=== PATIENT | female | born 1955 | race Caucasian/White ===

== ENCOUNTER → 2022-03-04 10:38 | Outpatient (CLI) | payer MEDICARE, BC, SELFPAY ==
--- NOTE | 2022-03-04 | DI.NM.S_ITS ---
PROCEDURE: NM BONE SCAN WHOLE BODY RADIOPHARMACEUTICAL: 18.1 mCi Tc-99m MDP IV. INDICATIONS: Multiple myeloma not having achieved remission TECHNIQUE: Delayed whole-body scintigrams were obtained approximately 3-4 hours after intravenous injection of radiotracer. Anterior and posterior views were acquired from vertex to feet. Additional left and right oblique views of the pelvis were obtained. COMPARISON: [facility] [place], CR, XR PELVIS WITH LATERAL HIP LEFT, 02/19/2022, 10:25. [facility] [place], CR, XR KNEE 4+ VIEWS LEFT, 02/19/2022, 10:31. FINDINGS: No lesions are identified in skull, sternum, clavicles, scapulae, ribs, bony pelvis, and visualized shafts of the long bones. There are foci of low level increased uptake in cervical, thoracic and lumbar spine with distribution indistinguishable from degenerative disc and facet disease; early metastasis to spine could be obscured by degenerative changes. There are foci of increased periarticular activity, most pronounced in left hip and medial aspect of the right knee, correlating with severe degenerative joint disease seen on the comparison radiographs. IMPRESSION: 1. No suspicious osseous lesions. 2. Severe left hip and right knee degenerative joint disease. Dictated by: Ayan Sullivan M.D. on 03/04/2022 at 17:42 Approved by: Ayan Sullivan M.D. on 03/05/2022 at 8:28
== END ==
PROVIDERS: Referring Provider Orthopaedic Surgery; Visit Provider Orthopaedic Surgery
DX: C90.00 Multiple myeloma not having achieved remission (principal); M16.12 Unilateral primary osteoarthritis, left hip; M17.11 Unilateral primary osteoarthritis, right knee
CPT/HCPCS: 78306; A9503

== ENCOUNTER → 2022-04-07 13:03 | Outpatient (CLI) | payer MEDICARE, BC, SELFPAY ==
[2022-04-07 15:12] LABS: Free T3, Triiodothyronine Free 3.68 pg/mL (2.77-5.27); Free T4, Direct Thyroxine 2.17 ng/dL (0.78-2.19)
[2022-04-07 15:26] LABS: Thyroid Stimulating Hormone 0.103 uIU/mL (0.47-4.68)
== END ==
PROVIDERS: PCP Nurse Practitioner; Referring Provider Nurse Practitioner; Visit Provider Nurse Practitioner
DX: E03.9 Hypothyroidism, unspecified (principal)
CPT/HCPCS: 36415; 84439; 84443; 84481

== ENCOUNTER → 2022-05-06 10:30 | Outpatient (CLI) | payer MEDICARE, BC, SELFPAY ==
[2022-05-06 12:10] LABS: COVID19 -Nasal RAPID Negative (Negative)
== END ==
PROVIDERS: PCP Nurse Practitioner; Referring Provider Orthopaedic Surgery; Visit Provider Orthopaedic Surgery
DX: Z20.822 Contact with and (suspected) exposure to COVID-19 (principal)
CPT/HCPCS: 87635; C9803

== ENCOUNTER 2022-05-08 06:13 | Day surgery (SDC) | payer MEDICARE, BC, SELFPAY ==
[2022-04-28 09:47] VITALS: BMI 39.3
[2022-05-08] VITALS (12 sets, daily range): BP systolic 112–176; BP diastolic 72–107; PULSE 66–89; RESP 16–18; TEMP 36.2–36.9; O2SAT 94–100; BMI 39.3
--- NOTE | 2022-05-08 06:39 | DI.RAD.S_ITS ---
PROCEDURE: XR PELVIS 1-2V INDICATIONS: LEFT HIP INNER OP TECHNIQUE: 1 view of the lower pelvis acquired. COMPARISON: None. FINDINGS: Intraoperative film of the left hip shows total hip arthroplasty in progress. Procedural soft tissue air within normal limits. Components appear appropriately aligned. No fracture. IMPRESSION: 1. Total left hip arthroplasty in progress Approved by: Fred Ortez M.D. on 05/08/2022 at 12:23
--- NOTE | 2022-05-08 06:56 | PM.PREOP ---
Pre-operative Note COVID-19 COVID-19 status: Negative Interval Note History & Physical reviewed/Exam performed by Physician: Yes Changes to H&P: No
[2022-05-08] MEDS: VANCOMYCIN 1,000 MG/200 ML PIGGYBACK 200 MG IV (06:57)
--- NOTE | 2022-05-08 06:57 | PM.OP.1 ---
Operative Date/Time/Diagnoses Date of procedure: 05/08/22 Time of procedure: 07:50 Pre-op diagnosis: Left hip avascular necrosis, left hip osteoarthritis Post-op diagnosis: same Procedure & Clinicians Procedure: Left total hip arthroplasty posterior approach Same procedure as scheduled: Yes Indications: The patient has had progressively worsening left hip pain with radiographic changes consistent with arthritis. Non-operative management has failed and the patient has requested total hip replacement. The risks, benefits and alternatives to surgery were discussed with the patient prior to proceeding. Risks discussed included, but were not limited to, failure to relieve pain, leg length discrepancy, dislocation, stiffness, infection, nerve damage, deep venous thrombosis, pulmonary embolism, stroke, coma, heart attack, permanent paralysis and , as well as the potential need for eventual revision of the prosthetic. Surgeon: Altagracia Godinez Casing In Line Feeder: Ros Gaston Anesthesia Type: General and Spinal Operative Notes Findings: Severe left hip avascular necrosis with marked softening of the acetabulum, soft bone, adequate stability Closure Type: primary Specimen(s): none sent Prosthetic devices, grafts, tissues, transplants, or devices: Size 54 readapt acetabulum, size 6 standard offset anthology, 36 x -3 cobalt chrome femoral head, three 6.5 mm screws, neutral poly liner Applied: drain(s) Estimated Blood Loss (mL): 250 Blood products transfused: none Procedure in detail: The patient was seen in the pre-operative area, where the patient identified the left hip as the operative site and this was marked with my initials. The patient received pre-operative antibiotics and was taken to the operating room and placed on the operative table in the right lateral decubitus position after satisfactory anesthesia. A budget consultant out was performed. The left leg was prepared from the ankle to the iliac crest with ChloroPrep in the usual fashion and draped through sterile drapes. The hip was approached through an approximately 20 cm incision centered over the greater trochanter and curving gently posteriorly as it went proximally. This was carried sharply to the fascia thom, which was divided and retracted with a self retaining retractor. The trochanteric bursa was excised with care being taken to avoid the sciatic nerve, which was identified and protected throughout the case. The short external rotators were incised and the capsulomuscular flap was raised and tagged for later repair. The hip was dislocated, and a femoral neck osteotomy performed approximately 15 mm above the lesser trochanter. Retractors were placed around the femur. The canal was opened with a box cutting osteotome, followed by a T handled reamer and a lateralizing reamer. The chili pepper broach was then used, followed by sequential broaching until there was good stability of the broach in the femur. Retractors were placed to expose the acetabulum. The labrum and central soft tissues were removed. Reaming was performed initially going up in 2 mm increments, then 1 mm increments until good bite was obtained with an odd sized reamer. The cup 1 mm larger than the last reamer was then inserted using the appropriate anteversion guides. It was further stabilized with 3 screws as she had very soft bone. A trial neutral liner was placed. The broach was placed in the canal. A trial head and neck were then placed and the hip relocated and checked for leg length and stability. An intraoperative film confirmed the component position and no evidence of fracture. The patient was stable in the position of sleep, of squatting, and could be put through a range of motion with 45 degrees internal rotation without dislocation. At 90 degrees flexion, internal rotation to 70 was possible before dislocation. This was felt to be satisfactory and the appropriate components were opened, and the trials were removed. The acetabular liner was impacted into position. The final stem was then impacted into the prepared femoral canal. A brief Betadine soak was performed while trialing with head options. The hip was meticulously irrigated with normal saline. Finally the femoral head was impacted onto the stem. The acetabulum was cleared of all material and the hip relocated one final time. The capsulomuscular flap was then repaired to the greater trochanter though an awl hole using the tag sutures. The short external rotators were repaired with a nonabsorbable suture. A deep drain was placed and brought out anteriorly. The fascia thom was closed with Vicryl. The subcutaneous layer was closed with barbed sutures and skin lo. An Collin dressing was applied and the patient was taken to recovery having tolerated the procedure well. Complications: none Post-operative Condition: stable Disposition: Acute Care Plan for aftercare: The patient will be maintained on a standard total hip replacement protocol with weight bearing as tolerated and posterior hip precautions. The patient will receive Aspirin and sequential compression devices for DVT prophylaxis. The patient will be discharged home when safe for the home environment.
[2022-05-08] MEDS: ACETAMINOPHEN 325 MG TABLET 975 MG PO (07:03)
[2022-05-08] MEDS: LACTATED RINGERS 1,000 ML 42 ML IV ×2 (07:29→10:09)
[2022-05-08] MEDS: APREPITANT 40 MG CAPSULE PO (07:52)
[2022-05-08] MEDS: CEFAZOLIN 2 GM/20 ML SYRINGE IV ×3 (08:23→19:31)
[2022-05-08] MEDS: TRANEXAMIC ACID 1,000 MG VIAL 2000 MG INJ ×2 (08:36→10:15)
--- NOTE | 2022-05-08 08:56 | SUR.OPER ---
Lateral on padded OR bed. Gel axillary roll. Arms secured on padded armboard with pillow supporting top arm, secured with tape over washcloth. Padded hip positioner braces x4 - anterior and posterior chest and pelvis. Additional gel pad used anterior pelvis. Gel pad under bottom leg from knee to foot and secured with tape over sheet.
[2022-05-08] MEDS: BUPIVACAINE LIPOSOME 266 MG/20 ML VIAL INJ (10:00)
[2022-05-08] MEDS: BUPIVACAINE 0.25% (PF) 60 ML, EPINEPHrine 0.3 MG INJ (10:00)
[2022-05-08] MEDS: EPINEPHrine 1 MG/ML TOP (10:05)
[2022-05-08] MEDS: SODIUM CHLORIDE IRRIG SOLUTION 250 ML, POVIDONE-IODINE SPONGE STICKS 1 APPLIC IRR (10:14)
--- NOTE | 2022-05-08 11:00 | DI.RAD.S_ITS ---
PROCEDURE: XR HIP W PEL IF DONE LT 2V INDICATIONS: POST OP LEFT HIP (POSTERIOR) TECHNIQUE: 2 views of the hip were acquired. COMPARISON: None. FINDINGS: Bones: Total left hip prosthesis in good position. Overlying skin lo and articular drain noted. Pelvic ring intact. Soft tissues: No suspicious soft tissue calcifications or masses. Postprocedural air within expected limits IMPRESSION: Total left hip prosthesis in good position. Postprocedural air and skin lo noted. Approved by: Fred Ortez M.D. on 05/08/2022 at 17:18
[2022-05-08] MEDS: ONDANSETRON 4 MG/2 ML INJ IV (11:17)
[2022-05-08] MEDS: ACETAMINOPHEN 325 MG TABLET 650 MG PO ×3 (12:13→23:31)
[2022-05-08] MEDS: LACTATED RINGERS 1,000 ML 125 ML IV (12:13)
--- NOTE | 2022-05-08 16:25 | PT.IIE ---
Current Diagnoses Unilateral primary osteoarthritis, left hip (05/08/22) Pain in left knee (05/08/22) Surgery Performed Operation Date: 05/08/22 07:45 Actual Procedures p Total Hip Arthroplasty Posterior(Left) - Altagracia Godinez MD Surgical History (Last Updated 04/28/22 @ 10:15 by Magda Leal, RN) History of partial hysterectomy (2013) History of surgery (12/2019) Hx of bilateral cataract extraction Hx of LASIK (~1998) Hx of ovarian cystectomy (1990) Hx of right mastectomy (03/2019) Hx of tonsillectomy Medical History (Last Updated 04/28/22 @ 10:15 by Magda Leal RN) Anesthesia complication Breast cancer, right (~2018) Cancer of blood vessel (~2009) Fibroids (~2013) Finger fracture (~2011) Hearing impaired HTN (hypertension) Hypothyroidism (~2004) Measles (~1959) Multiple myeloma Osteoarthritis (~2017) Peripheral neuropathy (~2018) RLS (restless legs syndrome) Rosacea (~2004) Seizure Physical Therapy Inpatient Evaluation/Re-Eval M1 PT/OT-IP Prior Functional Status Start: 05/08/22 17:39 Freq: NEEDED Status: Active Protocol: Document 05/08/22 04:25 AB (Rec: 05/08/22 17:49 AB [id number]) Medical Review Prior Functional Status Medical History Reviewed Yes Communication able to make needs known Mobility and Gait pt stated that she is modified independent with all mobilities and ambulation using SPC Social History Household Members none Living Arrangements House Number of Floors (Floors) One Floor Number of Stairs To Enter/Railing? 5 steps L rail: daughter stated that FWW will fit on the steps Home Environment High Toilet,Walk in Shower Home Equipment Front Wheel Walker,Straight Cane Additional Social History Comment daughter will be staying with pt to assist as long as needed M2 PT-IP Current Condition Start: 05/08/22 17:39 Freq: NEEDED Status: Active Protocol: Document 05/08/22 04:25 AB (Rec: 05/08/22 17:49 AB [email or web address]) Physical Therapy Current Condition Current Condition Evaluation Date 05/08/22 Treatment Diagnosis s/p L SHANITA posterior approach; difficulty in walking Onset Date 05/08/22 M3 PT-IP Subjective Start: 06/16/22 17:39 Freq: NEEDED Status: Active Protocol: Document 05/08/22 04:25 AB (Rec: 05/08/22 17:49 AB [id number]) Subjective Physical Therapy Visit Type Type Initial Evaluation Visit Start Time 16:25 Visit Stop Time 17:21 Total Visit Minutes 56 Number of RADIO OPERATOR GROUND Visits 0 Physical Therapy Visit Comments Patient Comments agreeable to do PT Therapy Pain Assessment Pain When Pain Assessed At Rest Pain Present Pain Present Pain Reported Location Left Hip Intensity 2 Scale Used Numeric (0 - 10) Pain Management Techniques Distraction,Re-positioning, Timing of Activity with Medications M4 PT-IP Mobility and Gait Start: 05/08/22 17:39 Freq: NEEDED Status: Active Protocol: Document 05/08/22 04:25 AB (Rec: 05/08/22 17:49 AB [id number]) PT-Bed Mobility Assessment Sit to Supine Sit to Supine Minimal Assistance PT-Transfer Assessment Sit to and From Stand Sit to and from Stand Minimal Assistance,1 Person Assistance,Use of Upper Extremities Equipment Transfer Assistive Device Gait Belt,Front Wheeled Walker Orthotic/Prosthetic Devices or Brace: No Transfers Transfer Destination Bed,Chair Transfer Technique ambulated Transfer Ability Level of Assist Contact Guard Assistance,1 Person Assistance,Use of Upper Extremities Comments Mobility Comments pt walking with nurse to use the toilet. PT took over. pt able to completed sit to stand from the toilet using grab bar min A and cues. ambulated to the chair using FWW ~ 10 ft CGA. educated pt and daughter regarding posterior hip precautions. pt completed sit to stand from the chair CGA to min A and cues and ambulated ~ 20ft using fWW to the EOB CGA. completed sit to supine min A with LE elevation to bed. positioned pt in bed. set up for dinner. call light and table placed within reach. caregiver training set up tomorrow with daughter at 830am. Gait Assessment Gait Gait Assistance Required: Contact Guard Assist Distance (Feet) 20 Able to Maintain Weight Bearing Status Yes During Gait Assistive Devices Assistive Device Gait Belt,Front Wheeled Walker Orthotic/Prosthetic Devices or Brace: No Gait Deviations General Gait Pattern Antalgic,Decreased Stride Length,Decreased Feet Clearance Factors Limiting Gait Function Factors Limiting Gait Function Decreased Activity Tolerance, Decreased Strength,Pain,Poor Balance PT-Balance Assessment Sitting Balance and Reactions Static Sitting Balance Ability Normal Dynamic Sitting Balance Ability Normal Standing Balance and Reactions Static Standing Balance Ability Fair Dynamic Standing Balance Ability Fair Device Used FWW M5 PT-IP Objective Assessments Start: 05/08/22 17:39 Freq: NEEDED Status: Active Protocol: Document 05/08/22 04:25 AB (Rec: 05/08/22 17:49 AB [id number]) Orientation Orientation/Cognition Level of Alertness Alert Orientation Name,Place,Situation Language Function Ability No Deficits Noted Safety Awareness Understands Safety Issues Memory Description No Deficits Noted Gross Range of Motion Lower Extremity ROM Assessment Within Functional Limits Strength Lower Extremity Strength Assessment Left Impaired Hip 3+/5 Knee 4-/5 Coordination Assessment Gross Coordination Gross Coordination WNL Sensation Assessment Sensation Gross Sensation WNL Muscle Tone Muscle Tone WNL Yes M6 PT-IP Treatment Start: 05/08/22 17:39 Freq: NEEDED Status: Active Protocol: Document 05/08/22 04:25 AB (Rec: 05/08/22 17:49 AB [id number]) Physical Therapy Treatment Education Education Provided Precautions,Weight Bearing Status,Post-Op Packet,Safety M7 PT-IP Assessment and Plan Start: 05/08/22 17:39 Freq: NEEDED Status: Active Protocol: Document 05/08/22 04:25 AB (Rec: 05/08/22 17:49 AB [email or web address]) PT Summary Assessment and Plan Potential Rehabilitation Potential Good Status of Condition at Evaluation Stable Summary Impairments Pain,ROM,Strength,Balance, Coordination,Sensation,Tone, Cognition,Bed Mobility, Transfers,Gait,Activity Tolerance Assessment Summary pt requiring CGA to min A with mobility using FWW. caregiver training set up tomorrow at 830am. will continue to assess progress. Goals Bed Mobility Goal Independent Transfer Goal Independent,Front Wheeled Walker Gait Goal Independent,Front Wheel Walker Gait Distance 200 Other Goals up/down 5 steps using FWW Days to Meet Goals 3 Frequency of Treatment Frequency Of Treatment Twice a Day Treatment Plan Physical Therapy Treatment Plan Bed Mobility Training,Transfer Training,Gait Training, Therapeutic Exercise,Balance Retraining,Post Op Education, Discharge Planning,Hot or Cold Pack,Neuromuscular Re-ed, Coordination Retraining,Manual Therapy Precautions Posterior Hip Precautions No Hip Flexion > 90 degrees,No Hip Internal Rotation,No Hip Adduction Weight Bearing Status Weight Bearing Status Weight Bear as Tolerated Allowed Weight Bearing Amount (enter % LLE WBAT or #) (%) Recommendations To Nursing Amount of Assist Needed 1 Person Assist Discharge Recommendations PT Discharge Recommendations Home with Assistance, Outpatient PT Transportation Needs at Discharge Private Vehicle
[2022-05-08] MEDS: DOCUSATE 100 MG CAPSULE PO (20:29)
[2022-05-08] MEDS: ASPIRIN EC 81 MG TABLET PO (20:29)
[2022-05-08] MEDS: CHOLECALCIFEROL (VITAMIN D3) 5,000 UNIT TABLET 5000 UNIT PO (20:29)
[2022-05-09 04:30] VITALS: BP 140/85; PULSE 90; RESP 14; TEMP 37.4; O2SAT 98
[2022-05-09] MEDS: LEVOTHYROXINE 50 MCG TABLET PO (06:20)
[2022-05-09] MEDS: ACETAMINOPHEN 325 MG TABLET 650 MG PO ×2 (06:20→11:32)
[2022-05-09 07:15] LABS: Hematocrit 32.5 % (36-46); Hemoglobin 11.7 g/dL (12.0-16.0)
[2022-05-09 07:42] VITALS: BP 132/78; PULSE 94; RESP 18; TEMP 37.2; O2SAT 97
[2022-05-09] MEDS: DOCUSATE 100 MG CAPSULE PO (08:10)
[2022-05-09] MEDS: ASPIRIN EC 81 MG TABLET PO (08:11)
[2022-05-09] MEDS: CHOLECALCIFEROL (VITAMIN D3) 5,000 UNIT TABLET 5000 UNIT PO (08:11)
[2022-05-09] MEDS: MULTIVITAMIN 1 TABLET 1 TAB PO (08:11)
[2022-05-09] MEDS: SODIUM CHLORIDE 0.9% FLUSH 10 ML IV (08:18)
--- NOTE | 2022-05-09 08:25 | PT.IPTN ---
Current Diagnoses Unilateral primary osteoarthritis, left hip (05/08/22) Pain in left knee (05/08/22) Surgery Performed Operation Date: 05/08/22 07:45 Actual Procedures p Total Hip Arthroplasty Posterior(Left) - Altagracia Godinez MD Physical Therapy Treatment Note M2 PT-IP Current Condition Start: 05/08/22 17:39 Freq: NEEDED Status: Active Protocol: Document 05/08/22 04:25 AB (Rec: 05/08/22 17:49 AB [email or web address]) Physical Therapy Current Condition Current Condition Evaluation Date 05/08/22 Treatment Diagnosis s/p L SHANITA posterior approach; difficulty in walking Onset Date 05/08/22 M3 PT-IP Subjective Start: 05/08/22 17:39 Freq: NEEDED Status: Active Protocol: Document 05/09/22 08:25 AB (Rec: 05/09/22 12:13 AB [email or web address]) Subjective Physical Therapy Visit Type Type Treatment Note Visit Start Time 08:25 Visit Stop Time 09:00 Total Visit Minutes 35 Number of INFORMATION SYSTEMS ARCHITECT Visits 0 Physical Therapy Visit Comments Patient Comments agreeable to do PT Therapy Pain Assessment Pain When Pain Assessed At Rest Pain Present Pain Present Pain Reported Location Left Hip Intensity 2 Scale Used Numeric (0 - 10) Description Tightness Pain Management Techniques Modification of Treatment,Re- positioning,Timing of Activity with Medications M4 PT-IP Mobility and Gait Start: 05/08/22 17:39 Freq: NEEDED Status: Active Protocol: Document 05/09/22 08:25 AB (Rec: 05/09/22 12:13 AB [email or web address]) PT-Bed Mobility Assessment Sit to Supine Sit to Supine Moderate Assistance PT-Transfer Assessment Sit to and From Stand Sit to and from Stand Contact Guard Assistance,1 Person Assistance,Use of Upper Extremities Equipment Transfer Assistive Device Gait Belt,Front Wheeled Walker Orthotic/Prosthetic Devices or Brace: No Transfers Transfer Destination Bed Transfer Technique ambulated Transfer Ability Level of Assist Contact Guard Assistance,1 Person Assistance,Use of Upper Extremities Comments Mobility Comments pt sitting on chair and daughter in room. BP: 132/78. pt able to recall 2/3 hip precautions but daughter was able to cue pt on precautions. caregiver training conduced. educated daughter on how to use safety belt and how to assist pt. daughter was able to put safety belt on pt and assisted pt with sit to stand and ambulated to the bed ~ 12ft using FWW CGA. pt c/o dizziness, nausea and cold sweats and instructed to sit down on the EOB. BP checked: 112/60. pt rested in sitting position for a few more minutes. BP: 110/74. pt stated that she is feeling better. BP monitored. completed sit to stand CGA and BP in standin/67. pt remained standing but after ~ 1-2 minutes and tosit back down due to dizziness and cold sweats and checked BP again 117/64. pt stated that she wants to lay back in bed. completed sit to supine mod A with LE elevation. positioned in bed. BP checked: 141/75. informed nurse regarding BP. adeline light and table placed within reach. set up 1 pm PT session this afternoon. Gait Assessment Gait Gait Assistance Required: Contact Guard Assist,1 Person Assist Distance (Feet) 12 Able to Maintain Weight Bearing Status No During Gait Assistive Devices Assistive Device Gait Belt,Front Wheeled Walker Orthotic/Prosthetic Devices or Brace: No Gait Deviations General Gait Pattern Antalgic,Decreased Stride Length,Decreased Feet Clearance Factors Limiting Gait Function Factors Limiting Gait Function Decreased Activity Tolerance, Decreased Strength,Limited Range of Motion,Pain,Poor Balance M5 PT-IP Objective Assessments Start: 05/08/22 17:39 Freq: NEEDED Status: Active Protocol: Document 05/08/22 04:25 AB (Rec: 05/08/22 17:49 AB [email or web address]) Orientation Orientation/Cognition Level of Alertness Alert Orientation Name,Place,Situation Language Function Ability No Deficits Noted Safety Awareness Understands Safety Issues Memory Description No Deficits Noted Gross Range of Motion Lower Extremity ROM Assessment Within Functional Limits Strength Lower Extremity Strength Assessment Left Impaired Hip 3+/5 Knee 4-/5 Coordination Assessment Gross Coordination Gross Coordination WNL Sensation Assessment Sensation Gross Sensation WNL Muscle Tone Muscle Tone WNL Yes M6 PT-IP Treatment Start: 05/08/22 17:39 Freq: NEEDED Status: Active Protocol: Document 05/09/22 08:25 AB (Rec: 05/09/22 12:13 AB [email or web address]) Physical Therapy Treatment Education Education Provided Precautions,Safety M7 PT-IP Assessment and Plan Start: 05/08/22 17:39 Freq: NEEDED Status: Active Protocol: Document 05/09/22 08:25 AB (Rec: 05/09/22 12:13 AB [email or web address]) PT Summary Assessment and Plan Potential Rehabilitation Potential Good Summary Impairments Pain,ROM,Strength,Balance, Coordination,Sensation,Tone, Cognition,Bed Mobility, Transfers,Gait,Activity Tolerance Progress Towards Goals Slow Progress due to Activity Tolerance Assessment Summary caregiver training conducted but needs further training. unable to complete training due to pt's decrease in BP with activity and c/o nausea/ dizziness and cold sweats. set up PT session again with ellither at 1 pm today. will assess progress for safe d/c plan Goals Bed Mobility Goal Independent Transfer Goal Independent,Front Wheeled Walker Gait Goal Independent,Front Wheel Walker Gait Distance 200 Other Goals up/down 5 steps using FWW Days to Meet Goals 3 Frequency of Treatment Frequency Of Treatment Twice a Day Treatment Plan Physical Therapy Treatment Plan Bed Mobility Training,Transfer Training,Gait Training, Therapeutic Exercise,Balance Retraining,Post Op Education, Discharge Planning,Hot or Cold Pack,Neuromuscular Re-ed, Coordination Retraining,Manual Therapy Precautions Posterior Hip Precautions No Hip Flexion > 90 degrees,No Hip Internal Rotation,No Hip Adduction Weight Bearing Status Weight Bearing Status Weight Bear as Tolerated Allowed Weight Bearing Amount (enter % LLE WBAT or #) (%) Recommendations To Nursing Amount of Assist Needed 1 Person Assist Discharge Recommendations PT Discharge Recommendations Home with Assistance, Outpatient PT Transportation Needs at Discharge Private Vehicle
[2022-05-09 10:54] VITALS: BP 128/69; PULSE 80; RESP 18; TEMP 37.1; O2SAT 100
--- NOTE | 2022-05-09 11:00 | P.DS_ITS ---
History of Present Illness History of Present Illness Date Patient Seen: 05/09/22 Time Patient Seen: 11:00 Chief complaint: LT SHANITA Narrative: Patient is complaining of very mild left hip pain this morning. She is using Tylenol only for pain currently. She is scheduled to work with physical therapy at 9:00 a.m.. Overall she is feeling good and would like to be discharged home. Her daughter is at bedside currently. Discharge Providers Provider Discharge Date: 05/09/22 Primary care physician: CHRISTOPHER Lovelace Consults: 05/08/22 06:39 Consult to Anesthesiology Routine Comment: Consulting Provider: Anesthesiologist Reason for consultation: Regional block for post operative pain control 05/08/22 11:52 Consult to Discharge Planning Routine Comment: Consult to Physical Therapy Evaluate & Treat Comment: Physician Instructions: post op SHANITA protocol Consult to Respiratory Therapy Evaluate & Treat Comment: Physician Instructions: Evaluate and treat Discharge provider: Ros Gaston PA-C Summary Hospital Course Discharge Diagnosis: Left hip avascular necrosis, left hip osteoarthritis Hospital Course: Operative Date/Time/Diagnoses Date of procedure: 05/08/22 Time of procedure: 07:50 Procedure & Clinicians Procedure: Left total hip arthroplasty posterior approach Same procedure as scheduled: Yes Indications: The patient has had progressively worsening left hip pain with radiographic changes consistent with arthritis. Non-operative management has failed and the patient has requested total hip replacement. The risks, benefits and alternatives to surgery were discussed with the patient prior to proceeding. Risks discussed included, but were not limited to, failure to relieve pain, leg length discrepancy, dislocation, stiffness, infection, nerve damage, deep venous thrombosis, pulmonary embolism, stroke, coma, heart attack, permanent paralysis and , as well as the potential need for eventual revision of the prosthetic. Surgeon: Altagracia Godinez Insurance Representative: Ros Gaston Anesthesia Type: General and Spinal Operative Notes Findings: Severe left hip avascular necrosis with marked softening of the acetabulum, soft bone, adequate stability Closure Type: primary Specimen(s): none sent Prosthetic devices, grafts, tissues, transplants, or devices: Size 54 readapt acetabulum, size 6 standard offset anthology, 36 x -3 cobalt chrome femoral head, three 6.5 mm screws, neutral poly liner Applied: drain(s) Estimated Blood Loss (mL): 250 Blood products transfused: none Procedure in detail: Status at Discharge Cognitive/behavioral status at discharge: at baseline, oriented Functional status at discharge: uses cane/walker Overall status at discharge: patient is progressing back to baseline Exam Vital Signs (past 8 hours): - 05/09/22 04:30 05/09/22 07:42 05/09/22 10:54 Temperature 99.3 F 99.0 F 98.8 F Pulse Rate 90 94 H 80 Respiratory Rate 14 18 18 Blood Pressure 140/85 132/78 128/69 Pulse Oximetry 98 97 100 Oxygen Flow Rate 0 0 0 Oxygen Delivery Method Room Air Oxygen Flow Rate 0 Narrative Exam Narrative: Very pleasant 67-year-old female resting comfortably in her chair, no acute distress. Dressing is collin dressing and demonstrates scant serosanguineous drainage, no surrounding erythema or induration. Bilateral lower ext we: Motor functions are grossly intact, sensation is grossly intact to light touch, calves are soft and nontender to palpation. Objective Labs Result Diagrams: 05/09/22 06:31 Labs: Laboratory Results - last 24 hr 05/09/22 06:31 Hgb 11.7 L Hct 32.5 L PFSH Medical History Anesthesia complication Breast cancer, right (~2018) Cancer of blood vessel (~2009) Fibroids (~2013) Finger fracture (~2011) Hearing impaired HTN (hypertension) Hypothyroidism (~2004) Measles (~1959) Multiple myeloma Osteoarthritis (~2017) Peripheral neuropathy (~2018) RLS (restless legs syndrome) Rosacea (~2004) Seizure Surgical History History of partial hysterectomy (2013) History of surgery (12/2019) Hx of bilateral cataract extraction Hx of LASIK (~1998) Hx of ovarian cystectomy (1990) Hx of right mastectomy (03/2019) Hx of tonsillectomy Social History household members: none Smoking Status: Never smoker alcohol intake: current Discharge Assessment & Plan Assessment and Plan Assessment: Stable status post left total hip arthroplasty, posterior approach Plan of Treatment: -mobilize with PT. Weightbearing as tolerated with front wheel walker. Maintain posterior hip precautions x6 weeks -continue with multimodal pain management -aspirin 81 mg twice daily x6 weeks for DVT prophylaxis -patient already has all of her frny-cxs-zmxbogn and prescription medications at home -pull Hemovac drain today -DC home when cleared by PT Discharge Plan Discharge Plan Patient Disposition: Home Discharge orders & Medications Discharge Orders: Discharge (Order); Ordered 05/09/22 Ordered By: Ros Gaston Prescriptions: New oxycodone 5 mg Tablet 5 mg PO Q4HR PRN (Reason: Moderate to severe postop pain) Qty: 42 0RF acetaminophen 500 mg capsule 500 mg PO Q4-6H MDD Max 3000 mg per day Qty: 90 0RF aspirin 81 mg Tablet,Delayed Release (Dr/Ec) 81 mg PO BID 42 Days Qty: 84 0RF Rx Instructions: Take 162 mg (1/2 tab of Aspirin 325mg) daily x6 weeks to prevent blood clots ibuprofen 200 mg Tablet 400 mg PO Q4-6H MDD Max 2400 mg per day PRN (Reason: Pain/inflammation) Qty: 90 0RF docusate sodium 100 mg Capsule 100 mg PO BID PRN (Reason: Constipation from narcotic pain meds) Qty: 20 0RF Continued levothyroxine 50 mcg capsule 50 mcg PO DAILY Qty: 90 1RF Rx Instructions: Due for repeat TSH in 3 months sulindac 200 mg tablet 200 mg PO .QD wdgdddfikroi-Xe-qujv-minerals Tablet 1 tab PO .QD cholecalciferol (vitamin D3) 125 mcg (5,000 unit) capsule 5,000 unit PO BID ibuprofen 200 mg Tablet 400 mg PO Q6H PRN (Reason: Pain) Discontinued acetaminophen 500 mg Tablet 1,000 mg PO Q6H PRN (Reason: Pain) Follow up/Referrals: Kristin Richard ARNP [Primary Care Provider] - Altagracia Godinez MD [Physician] - (10-14 days for postoperative visit) Diet/Activity/Treatments Diet: Diet as Tolerated Other treatments: Medications: -Aspirin 81mg twice daily x6 weeks to prevent blood clots. -OTC Tylenol 500 mg 1 tablet every 4 hours as needed for pain/fever. Max 6 tablets per day. -Ibuprofen 400 mg 1 tablet every 4 hours as needed for pain/inflammation. Max 2,400 mg per day. -Oxycodone 5 mg take 1-2 tablets every 4 hours as needed for moderate-severe pain (narcotic pain medication). -Vistaril (hydroxyine) 25mg 1 tab every 4 hours as needed for spasms/pain/nausea. -As needed medications: -Ducolax and /or MiraLax as needed for constipation from narcotic pain medications. -Pepcid AC as needed for stomach upset (usually from aspirin or ibuprofen). Dressing/Wound care: -Keep Collin dressing in place until postoperative follow-up office visit. The Collin battery/pump should last for 7 days. Once that stops, please cut off hose at base of dressing and cover with a bandaid/part of a dressing from Collin package. Monitor can be thrown away and recycle the batteries. Leave the remaining dressing in place. -Okay to shower. Keep wound out of direct water stream. No soaking or submerging until all the scabs fall off (approximately 6 weeks). -No lotions, ointments, or scar creams directly to the incision until the wound is healed (4-6 weeks), -Please call the office if dressing becomes wet, soiled, or saturated. Activities: -Maintain posterior hip precautions x6 weeks. -Weight-bearing as tolerated. Use front wheeled walker, and progress to cane when safe. -Continue with home exercises as directed by your physical therapist. -Elevate ?toes above the nose if you have significant swelling in your lower leg. (A wedge pillow is easiest.) -Ice your incision as needed for pain/inflammation/swelling. Protect your skin with a folded pillowcase. Follow-up: -Follow-up with your surgeon or PA in the office in 10-14 days after surgery. -Follow-up with your surgeon 6 weeks postoperatively. Call the office if you have chest pain, shortness of breath, significant swelling that will not resolve with elevating, fever over 101?, significantly worsening pain, or are concerned you might need to go to the Emergency Room. [facility]: [phone] Skin/Wound/Dressing Care Report to your healthcare provider any signs of infection, such as:: chills, fever, night sweats, unusual drainage and unusual redness Visit Report/Discharge Packet Instructions: DI for Hip Replacement Stand Alone Forms: Surgery Discharge Discharge Data Primary Care Provider: Kristin Richard Attending Provider: Altagracia Godinez VTE Deep Vein Thrombosis/Pulmonary Embolism Present on Admission: No
[2022-05-09 11:15] VITALS: BP 151/81
--- NOTE | 2022-05-09 12:12 | CM.DANOTE ---
DCP: Case received, EMR reviewed and met with patient. Daughter, Jennifer, was also at bedside. Introduced self and role. Was able to obtain information regarding patient's baseline activity status prior to her surgery. DCP assessment completed with information currently available. Patient is a 67 year old female who admitted yesterday morning to the care of the orthopedic team. PCP: CHRISTOPHER Lovelace. Payer: confirmed: Medicare/ Out of State [employer]. Patient came to the hospital for a surgical procedure. She had left total hip arthroplasty, posterior approach. Patient has history of left hip osteoarthritis. Met with patient in her room, daughter, Jennifer, also present. Patient is alert and oriented, was sitting up in bed, pleasant.Confirmed with patient that she resides alone in [facility], but her daughter, Jennifer, lives close by, in [place]. Daughter plans on staying with mom for her recovery. Patient drives at her baseline, and uses a single point cane. She will be working again with the P.T. team. P: Patient has discharge orders for home today, pending working with therapy. Leatha Lewis RN/Vacuum Pan Operator Discharge Planning/Care Management CM Discharge Assessment Start: 05/09/22 12:06 Freq: Status: Active Protocol: Document 05/09/22 12:07 (Rec: 05/09/22 12:11 [id number]) Discharge Planning Assessment Assigned Executive Kitchen Manager Leatha Lewis RN/Vacuum Pan Operator Advance Directives? Yes Advance Directives on File No History Provided By Patient,Medical Record Prior Living Arrangements House Household Members none Type of transporation used prior to Drives own vehicle admit Independent with ADL's Yes Is patient alert and oriented? Yes Caregiver for Another No DME Already Rented / Owned Other Comment Single Point Cane Barriers to Discharge No Comment Daughter will be staying with her Discharge Plan Home Transportation Arrangement Daughter Referrals Initiated None needed Whiteboard Updated in Patient Room with Yes name and ext. # of Executive Kitchen Manager Review Status In Process Next Review Type Continued Stay Review Pre-Anesthesia Assessment Start: 04/28/22 09:47 Freq: Status: Complete Protocol: Document 04/28/22 09:47 CAB (Rec: 04/28/22 10:35 CAB [id number]) Pre-Anesthesia Assessment Preferred Name Naty Patient Information Reviewed Via Phone Assessment Assessment Completed With Patient Diagnostic Results BMP/CMP,CBC,EKG,Urinalysis Comment Outside labs/ECG scanned, COVID screen-needs to schedule Primary Care Provider Kristin Richard Medical Clearance Received Yes Seen Specialist in Last 12 Months Yes Specialist Seen Orthopedist Primary Language Iranian Paint Crew Supervisor Required No Height 5 ft 5 in Weight 236 lb 8.014 oz Body Mass Index (BMI) 39.3 Hearing Ability Hard of Hearing Visual Impairment No Limitations Dentition Type Teeth, Natural Present Barriers to Learning None Hx Anesthesia Reactions Yes: Extreme PONV, took me a long time to wake up after mastectomy Hx Family Anesthesia Reaction No Hx Malignant Hyperthermia No Hx Blood Transfusions Yes: During chemo 2019 Hx Blood Transfusion Reaction No Anesthesia Review Requested No alcohol intake current alcohol intake frequency holidays/special occasions only Smoking Status Never smoker Substance Use Type marijuana Comment Edibles only for sleep Pain Present Pain Reported Musculoskeletal Symptoms Abnormal Gait,Difficulty Walking,Joint Pain History of Falling (Recent or History of No ) Patient is completely paralyzed or No completely immobile Prosthesis or Orthotic Device Cane,Front Wheel Walker Mental Status Oriented to own ability Is patient on oxygen? No Does patient have TREVIÑO/SOB No Hx Sleep Apnea No Currently Taking a Beta Alexy No Can You Climb a Flight of Stairs Without No SOB Hx Chest Pain No Hx SOB No Hx Syncope or Dizziness No Anti-Coagulant Therapy No Has a Onboarding Specialist No Cardiac Testing No Hx Pacemaker/ICD No Pacemaker Rep Required? No Cardiac Clearance Received Not Applicable Diet Type At Home Regular dysphagia No Bladder Pattern Incontinent Urinary Catheter Present No Hx Urinary Self Catheterization No Diabetes No HgbA1C 5.3 Date 02/25/22 Patient No Lactating No Hx Drug Resistant Organism No Presence of External or Internal Medical Yes: Bilat eye IOLs Devices Have you had any close contact with No someone diagnosed with COVID-19? Received a COVID vaccine? Yes Received all doses? Yes Marital Status / 2018 Lives With none Prior Living Arrangements House Number of Floors (Floors) One Floor Support System Child/Children Does the Patient Have Assistance After Yes: Daughter will stay with Surgery pt at [place] Patient Discharge Plan Description Return Home Comment Pt advised 1 night length of stay per surgeon's office Feels Safe in Current Environment Yes Been Physically Hurt or Threatened By a No Person in Current Environment Do you have thoughts of harming yourself None or others? Are you currently considering suicide? No Do you have a plan to hurt yourself or No Plan others? Do You Have Any Spiritual Beliefs That No May Affect Your HC Choices? Do You Have Any Cultural Practices That No May Affect Your HC Choices? Who Can We Speak to About Patient's Care Family, friends Identifying Code for Release of Patient Declines to issue Information Health Care Proxy/Next of Kin Jennifer (daughter) Health Care Proxy Emergency Contact Name Jennifer (daughter) Emergency Contact Advance Directives? Yes Advance Directives on File No Requested Patient Bring Advanced Yes Directives DOS Power of Tub Attendant Yes Power of Tub Attendant Name Jennifer (cherie) Power of Tub Attendant PAC Instructions Do not shave/clip surgical site,Durable medical equipment ,Medications to take/avoid, Nasal antibiotic,No ETOH/ petroleum product on skin DOS, NPO,Post-op transportation,Pre -surgical wash,Sensory aids, Sturdy shoes/comfortable clothes,Do not bring valuables and remove jewelry
--- NOTE | 2022-05-09 13:06 | PT.IPTN ---
Current Diagnoses Unilateral primary osteoarthritis, left hip (05/08/22) Pain in left knee (05/08/22) Surgery Performed Operation Date: 05/08/22 07:45 Actual Procedures p Total Hip Arthroplasty Posterior(Left) - Altagracia Godinez MD Physical Therapy Treatment Note M2 PT-IP Current Condition Start: 05/08/22 17:39 Freq: NEEDED Status: Active Protocol: Document 05/08/22 04:25 AB (Rec: 05/08/22 17:49 AB [id number]) Physical Therapy Current Condition Current Condition Evaluation Date 05/08/22 Treatment Diagnosis s/p L SHANITA posterior approach; difficulty in walking Onset Date 05/08/22 M3 PT-IP Subjective Start: 05/08/22 17:39 Freq: NEEDED Status: Active Protocol: Document 05/09/22 13:06 AB (Rec: 05/09/22 13:45 AB [id number]) Subjective Physical Therapy Visit Type Type Treatment Note Visit Start Time 13:06 Visit Stop Time 13:35 Total Visit Minutes 29 Number of CRAYON SAWYER Visits 0 Physical Therapy Visit Comments Patient Comments stated that she is feeling better M4 PT-IP Mobility and Gait Start: 05/08/22 17:39 Freq: NEEDED Status: Active Protocol: Document 05/09/22 13:06 AB (Rec: 05/09/22 13:45 AB [id number]) PT-Transfer Assessment Sit to and From Stand Sit to and from Stand Contact Guard Assistance,1 Person Assistance Equipment Transfer Assistive Device Gait Belt,Front Wheeled Walker Orthotic/Prosthetic Devices or Brace: No Transfers Transfer Destination Bed Transfer Technique ambulated Comments Mobility Comments pt sitting on chair. BP: 133/ 76. daughter able to put safety belt on pt and assist pt with sit to stand. BP in standin/75. pt completed ambulation to EOB ~ 15 ft using FWW CGA. Pt sat on the chair. BP checked: 164 /75. educated pt and daughter regarding stair climbing. pt ambulated to the platform step with daughter assisting and completed up/down platform step using FWW min A and cues . daughter was able to assist pt. pt stated that she is ok with steps and does not want to do stair climbing anymore but agreed to ambulate farther and completed 75 ft using fWW CGA. pt went back to her room. sat on the chair. educated on dressing techniques with precautions. daughter and pt without any further concerns. informed nurse regarding pt's mobility. call light within reach. Gait Assessment Gait Gait Assistance Required: Contact Guard Assist Distance (Feet) 75 Able to Maintain Weight Bearing Status Yes During Gait Assistive Devices Assistive Device Gait Belt,Front Wheeled Walker Orthotic/Prosthetic Devices or Brace: No Gait Deviations General Gait Pattern Antalgic,Decreased Stride Length,Decreased Feet Clearance Factors Limiting Gait Function Factors Limiting Gait Function Decreased Activity Tolerance, Decreased Strength,Limited Range of Motion,Pain,Poor Balance,Poor Safety Awareness Stair Climbing Assessment Evaluation Level of Assist On Stairs Minimal Assistance Devices Stair Climbing Assistive Devices Front Wheel Walker Technique/Endurance Stair Climbing Direction Ascend and Descend Stair Climbing Technique Step to Step Number of Steps Climbed 1 Stair Climbing Set # Repetitions (reps) 1 M5 PT-IP Objective Assessments Start: 05/08/22 17:39 Freq: NEEDED Status: Active Protocol: Document 05/08/22 04:25 AB (Rec: 05/08/22 17:49 AB [id number]) Orientation Orientation/Cognition Level of Alertness Alert Orientation Name,Place,Situation Language Function Ability No Deficits Noted Safety Awareness Understands Safety Issues Memory Description No Deficits Noted Gross Range of Motion Lower Extremity ROM Assessment Within Functional Limits Strength Lower Extremity Strength Assessment Left Impaired Hip 3+/5 Knee 4-/5 Coordination Assessment Gross Coordination Gross Coordination WNL Sensation Assessment Sensation Gross Sensation WNL Muscle Tone Muscle Tone WNL Yes M6 PT-IP Treatment Start: 05/08/22 17:39 Freq: NEEDED Status: Active Protocol: Document 05/09/22 13:06 AB (Rec: 05/09/22 13:45 AB [id number]) Physical Therapy Treatment Education Education Provided Precautions,Safety M7 PT-IP Assessment and Plan Start: 05/08/22 17:39 Freq: NEEDED Status: Active Protocol: Document 05/09/22 13:06 AB (Rec: 05/09/22 13:45 AB [id number]) PT Summary Assessment and Plan Potential Rehabilitation Potential Good Summary Impairments Pain,ROM,Strength,Balance, Coordination,Sensation,Tone, Cognition,Bed Mobility, Transfers,Gait,Activity Tolerance Progress Towards Goals Slow Progress due to Activity Tolerance Assessment Summary caregiver training completed and daughter was able to assist pt safely with mobility . pt may go home when medically stable. Goals Bed Mobility Goal Independent Transfer Goal Independent,Front Wheeled Walker Gait Goal Independent,Front Wheel Walker Gait Distance 200 Other Goals up/down 5 steps using FWW Days to Meet Goals 3 Frequency of Treatment Frequency Of Treatment Twice a Day Treatment Plan Physical Therapy Treatment Plan Bed Mobility Training,Transfer Training,Gait Training, Therapeutic Exercise,Balance Retraining,Post Op Education, Discharge Planning,Hot or Cold Pack,Neuromuscular Re-ed, Coordination Retraining,Manual Therapy Precautions Posterior Hip Precautions No Hip Flexion > 90 degrees,No Hip Internal Rotation,No Hip Adduction Weight Bearing Status Weight Bearing Status Weight Bear as Tolerated Allowed Weight Bearing Amount (enter % LLE WBAT or #) (%) Recommendations To Nursing Amount of Assist Needed 1 Person Assist Discharge Recommendations PT Discharge Recommendations Home with Assistance, Outpatient PT Transportation Needs at Discharge Private Vehicle
== END 2022-05-09 14:17 | disposition home or self-care (01) ==
LOC: OR 06:17 → AC 06:18
PROVIDERS: PCP Nurse Practitioner; Referring Provider Orthopaedic Surgery; Visit Provider Orthopaedic Surgery
PROC: 0SRB0JZ Replacement of Left Hip Joint with Synthetic Substitute, Open Approach (ICD-10-PCS; CPT 27130; principal; 2022-05-08 07:45)
DX: M16.12 Unilateral primary osteoarthritis, left hip (principal); M87.9 Osteonecrosis, unspecified; C90.00 Multiple myeloma not having achieved remission; E03.9 Hypothyroidism, unspecified
CPT/HCPCS: 27130; 72170; 73502; 85014; 85018; 97161; 97530; C1776; C9290; J0171; J0690; J1100; J2250; J2405; J2704; J3010; J8501

== ENCOUNTER → 2023-03-13 11:06 | Outpatient (CLI) | payer MEDICARE, BC, SELFPAY ==
[2023-02-23 12:49] VITALS: BMI 39.3
--- NOTE | 2023-03-13 | DI.MRI.S_ITS ---
BREAST MRI OF BOTH BREASTS: 03/13/2023 CLINICAL: Bilateral Breast MRI - history of breast cancer. PROCEDURE: MR BREAST BI WO/W CON INDICATIONS: HX BREAST CANCER TECHNIQUE: The patient was placed prone in a dedicated breast imaging coil. Precontrast axial STIR and 3D FLASH without fat saturation sequences were obtained. Both before and after bolus injection of contrast, sequential 1-minute axial 3D FLASH with fat saturation sequences for 3 time points, with subtraction images and maximum intensity projections (MIP's) generated. Delayed sagittal FLASH images with fat saturation were also obtained. Computer-aided detection, including computer algorithm analysis of MRI image data for lesion detection and characterization, pharmacokinetic analysis, with further physician review for interpretation, was performed. COMPARISON: Outside Facility, [facility], [facility] SCREENING MAMMO [facility], 09/11/2020, 13:17. FINDINGS: Image quality: Excellent. There is minimal background parenchymal enhancement. Right breast: The patient is status post right mastectomy. No abnormal enhancement within the surgical bed or along the chest wall. Left breast: No suspicious enhancement or mass lesions in the left breast. There is an enhancing cutaneous lesion at 3:00 o'clock approximately 6 cm from the nipple. This is visualized on the comparison mammogram dated September 11, 2020. Differential considerations include a small mole, actinic keratosis, or skin tag. Miscellaneous: No axillary adenopathy. Patient is status post right axillary matt dissection. Limited visualization of the heart, lungs, and upper abdomen are unremarkable. IMPRESSION: NEGATIVE 1. Negative breast MRI. The patient is due for her annual screening mammogram. Electronically Signed By: Pilar godfrey/:03/13/2023 15:05:27 letter sent: Normal Exam ACR BI-RADS Category 1: Negative [id number]
--- NOTE | 2023-03-13 11:08 | DI.US.S_ITS ---
PROCEDURE: US THYROID INDICATIONS: new dx hashimotos TECHNIQUE: Real-time scanning was performed of the thyroid gland, with image documentation. COMPARISON: None. FINDINGS: Right: Thyroid lobe measures 5.0 x 2.4 x 2.1 cm, and is heterogeneously hypoechoic in echotexture. Hyperechoic bands running through the right thyroid lobe. Left: Thyroid lobe measures 5.1 x 2.1 x 2.0 cm, and is heterogeneously hypoechoic in echotexture. The margin is lobulated. Mildly increased vascularity. Isthmus: Seven mm thick. Nodule number: 1 Location: Deep right inferior pole Size: 0.7 x 0.4 x 0.5 cm. Composition: Not well determined due to shadowing calcifications Echogenicity: Hypoechoic Shape: wider than tall. Margins: Indistinct Echogenic foci: Peripheral Total points: Six ACR TI-RADS category: Moderately suspicious Nodule number: 2 Location: Left superior pole Size: 0.5 x 0.5 x 0.5 cm. Composition: Not determined due to shadowing calcification Echogenicity: Hypoechoic Shape: wider than tall. Margins: Smooth Echogenic foci: Peripheral Total points: Six ACR TI-RADS category: Moderately suspicious Nodule number: 3 Location: Left inferior pole Size: 0.7 x 0.4 x 0.5 cm. Composition: Solid Echogenicity: Hyperechoic Shape: wider than tall. Margins: Smooth Echogenic foci: No Total points: Three ACR TI-RADS category: Mildly suspicious IMPRESSION: 1. Slightly enlarged and edematous thyroid gland with morphology consistent with thyroiditis. 2. Two subcentimeter moderately suspicious nodules both incompletely characterized due to presence of shadowing calcification. Because of subcentimeter size, follow-up is not required by ACR standards. 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 ACR TI-RADS definitions and recommendations: TI-RADS 1 (benign): 0 points. FNA not needed. TI-RADS 2 (not suspicious): 2 points. FNA not needed. TI-RADS 3 (mildly suspicious): 3 points. * FNA if 2.5 cm or larger, follow up if 1.5 cm or larger (at 1, 3, and 5 years). TI-RADS 4 (moderately suspicious): 4-6 points. * FNA if 1.5 cm or larger, follow up if 1 cm or larger (at 1, 2, 3, and 5 years). TI-RADS 5 (highly suspicious): 7 points or more. * FNA if 1 cm or larger, follow up if 0.5 cm or larger (every year for 5 years). Dictated by: Shahla De Jesus M.D. on 03/13/2023 at 13:41 Approved by: Shahla De Jesus M.D. on 03/13/2023 at 13:51
== END ==
PROVIDERS: PCP Nurse Practitioner; Referring Provider Nurse Practitioner; Visit Provider Nurse Practitioner
DX: N63.25 Unspecified lump in the left breast, overlapping quadrants (principal); E04.2 Nontoxic multinodular goiter; E06.3 Autoimmune thyroiditis; E03.9 Hypothyroidism, unspecified; Z85.3 Personal history of malignant neoplasm of breast; Z90.11 Acquired absence of right breast and nipple
CPT/HCPCS: 76536; 77049; A9579